=== PATIENT | male | born 1990 | race Two or more races ===

== ENCOUNTER 2021-05-06 09:10 | Emergency (ER) | payer OTHER ==
[~2021-05-06] VITALS: Ht 172.7 cm; Wt 90.7 kg
[2021-05-06] MEDS ORDERED: IBUPROFEN 800 MG TAB PO ONE (10:15)
[2021-05-06] MEDS ORDERED: cefTRIAXone SOD 1,000 MG VL IM ONE (10:15)
[2021-05-06] MEDS ORDERED: KETOROLAC TROMETH 60MG/2ML VIAL IM ONE (10:30)
[2021-05-06 10:35] VITALS: BP 145/94
[2021-05-06] MEDS ORDERED: IBUP800T26 PO (10:40)
[2021-05-06] MEDS ORDERED: AMOX-277 PO (10:41)
== END 2021-05-06 11:00 | disposition home or self-care (01) ==
LOC: ER 09:10
DX: K04.7 Periapical abscess without sinus (principal)
CPT/HCPCS: 96372; 99283; J1885